=== PATIENT | female | born 1970 | race African-American/Black ===

== ENCOUNTER 2024-10-26 18:18 | Emergency (ER) | payer SELFPAY ==
[2024-10-26 18:47] VITALS: BP 139/70; PULSE 95; RESP 20; TEMP 36.5; O2SAT 100
--- NOTE | 2024-10-26 22:31 | PC.NURSE ---
22:12 Pt name was called out by wireless retail manager to be seen by provider. Pt did not respond to first call out. 22:30 Pt name was called again to go back to room. Pt did not respond to 2nd call out. Pt left without being seen.
== END 2024-10-26 22:12 | disposition left against medical advice (07) ==
DX: M54.50 Low back pain, unspecified (principal)
CPT/HCPCS: 99199

== ENCOUNTER 2024-10-27 08:55 | Emergency (ER) | payer OTHER, SELFPAY ==
--- NOTE | ~2024-10-27 | CT_ITS ---
EXAMINATION: CT lumbar spine wo con DATE: 10/27/2024 09:51 INDICATION: Left lower back pain radiating to the left lower extremity TECHNIQUE: Computed tomography (CT) of the lumbar spine was performed without intravenous contrast. A utomated exposure control and iterative reconstruction technique were employed. The dose-length produ ct was 328.37 mGy-cm. COMPARISON: None FINDINGS: 15 degrees lumbar levoscoliosis. Sagittal alignment is normal. Vertebral body heights are normal. Tan morl's node along the inferior endplate of L5. Mild disc height loss at L5-S1 and mild right-sided di sc height loss at L3-L4. Likely tubal ligation clips at the left and right sides of the uterus. 6.2 x 3.3 cm left adnexal cyst. The following disc levels are specifically discussed: T11-T12: The disc does not extend beyond the endplate margin. There is mild left and minimal right fa cet joint osteoarthritis. There is no neural foraminal stenosis. There is no central canal stenosis. T12-L1: Disc is mildly bulging. There is mild left and minimal right facet joint osteoarthritis. Ther e is no neural foraminal stenosis. There is mild central canal stenosis. L1-L2: Disc is bulging. There is mild bilateral facet joint osteoarthritis. There is no neural forami nal stenosis. There is mild central canal stenosis. L2-L3: Disc is minimally bulging. There is mild bilateral facet joint osteoarthritis. There is no demetria ral foraminal stenosis. There is no central canal stenosis. L3-L4: Disc is mildly bulging. There is mild right and minimal left facet joint osteoarthritis. There is no neural foraminal stenosis. There is mild central canal stenosis. L4-L5: Disc is minimally bulging. There is mild bilateral facet joint osteoarthritis. There is minima l right neural foraminal stenosis. There is no central canal stenosis. L5-S1: Disc is bulging. There is mild bilateral facet joint osteoarthritis. There is mild bilateral, left greater than right neural foraminal stenosis. There is mild central canal stenosis along with na rrowing of the lateral recesses, left greater than right. IMPRESSION: 1. Mild lumbar spondylosis. Reviewed, dictated and finalized at location A. [employer] IMPRESSION: 1. Mild lumbar spondylosis.
[2024-10-27 09:11] VITALS: BP 127/88; PULSE 82; RESP 18; TEMP 36.6; O2SAT 100
--- NOTE | 2024-10-27 09:45 | ED_ITS ---
HPI - Back Pain/Injury General Chief Complaint: Back Pain/Injury Stated Complaint: back pain Time Seen by Provider: 10/27/24 09:01 Source: patient Mode of arrival: ambulatory Limitations: no limitations History of Present Illness HPI Narrative: Patient is a 54-year-old female who presents the ED with report of back pain. Patient reports history of sciatica and September of this year after shoveling snow. States last she turned over in bed and felt a twinge in her back. Has had pain throughout her left lower back, radiating down her left medial lower leg down to her foot since then. Worse with movement. Has been taking Advil for the pain with some relief. Is able to ambulate. Denies numbness in lower extremities or saddle anesthesia. Does have some tingling intermittently in her left toes. Denies bowel or bladder incontinence. Denies weakness. Related Data Allergies Allergy/AdvReac Type Severity Reaction Status Date / Time Sulfa (Sulfonamide Allergy Mild Rash Verified 10/27/24 09:15 Antibiotics) Review of Systems Review of Systems: All systems reviewed & are unremarkable except as noted in HPI. All systems reviewed & are unremarkable except as noted in HPI and below Exam Narrative: GENERAL: Well appearing, thin, non-toxic, in no acute distress. HEAD: Normocephalic, atraumatic. RESPIRATORY: Airway patent, respirations nonlabored. Clear to auscultation bilaterally, no rales, rhonchi, wheezing. CARDIOVASCULAR: Regular rate and rhythm MUSCULOSKELETAL: Moves all extremities. No gross deformities. No significant midline lumbar spinal tenderness. Tenderness palpation over left SI region, reproducing pain. Sensation intact. No palpable bony deformities. Positive straight leg raise on left. Sensation is intact throughout left lower extremity pain. Peripheral pulses intact. SKIN: Warm, dry, normal color. NEURO: A&O X3. Speech clear. Cranial nerves II-XII grossly intact. Steady gait. No ataxic movements. PSYCHIATRIC: Appropriate mood and affect. Normal interaction. Course Vital Signs Vital signs: Vital Signs Temperature 97.9 F 10/27/24 09:11 Pulse Rate 82 10/27/24 09:11 Respiratory Rate 18 10/27/24 09:11 Blood Pressure 127/88 10/27/24 09:11 Pulse Oximetry 100 10/27/24 09:11 Oxygen Delivery Room Air 10/27/24 09:11 Temperature 97.9 F 10/27/24 09:11 Pulse Rate 82 10/27/24 09:11 Respiratory Rate 18 10/27/24 09:11 Blood Pressure 127/88 10/27/24 09:11 Pulse Oximetry 100 10/27/24 09:11 Oxygen Delivery Room Air 10/27/24 09:11 MDM - Back Pain/Injury MDM Narrative Medical decision making narrative: Patient?s pain is positional and localized to paraspinal muscles without signs of cord compression or cauda equina. Normal neurologic exams. No red flag symptoms. No fever noted and no significant risk factors for osteomyelitis or spinal epidural abscess. No symptoms or signs to suggest pain is referred from abdominal or source. CT lumbar spine obtained, showing mild lumbar spondylosis. Does show several bulging discs. No acute findings or fractures. Discussed imaging findings with patient. She is feeling improved with supportive therapy. Symptoms seem most consistent with musculoskeletal pain, lumbar strain, sciatica. Patient ambulates with a steady gait and is felt to be a reasonable candidate for continued outpatient management. Discharge home with muscle relaxers. Recommended close follow-up with PCP for further evaluation. Discussed strict return precautions. She agrees with plan. Discharged in stable condition. Medical Records Attestation: I reviewed the patient's medical records. Imaging Data Attestation: I personally reviewed and interpreted this imaging study as follows: Radiologist's impression: ITS Impressions Lumbar Spine CT 10/27/24 09:56 IMPRESSION: 1. Mild lumbar spondylosis. Discharge Plan Discharge Clinical Impression: Lumbar radiculopathy Strain of lumbar region Qualifiers: Encounter type: initial encounter Qualified Code(s): S39.012A - Strain of muscle, fascia and tendon of lower back, initial encounter Patient Disposition: Home, Self-Care Condition: Stable Instructions: Antibiotic Form, Sciatica (ED), Lumbar Radiculopathy (ED), Lower Back Exercises (ED) Additional Instructions: Continue Tylenol and Ibuprofen as needed for pain. You may use ice/heat, lidocaine patches to area of pain. Take muscle relaxers as needed and prescribed. Recommend taking these at night as they may cause sedation. Do not drive, operate heavy machinery, drink alcohol while on muscle relaxers as this may cause further sedation. Follow-up with your primary care doctor for further evaluation. Return to the ED if you experience worsening or severe pain, recurrent injury, numbness in groin or legs, going to the bathroom without meaning to, unable to keep down food or drink, or any other symptoms of concern. Patient Language: Divehi Prescriptions: New cyclobenzaprine 5 mg tablet 10 mg PO TID PRN (Reason: muscle spasm) Qty: 15 0RF lidocaine 5 % adhesive patch,medicated 1 patch topical DAILY Qty: 15 0RF Rx Instructions: leave on most painful area for up to 12 hrs Follow-up/Referrals: UNKNOWN,DOCTOR [Primary Care Provider] - Time of Disposition: 11:02
[2024-10-27] MEDS: ACETAMINOPHEN 500 MG TABLET 1000 MG PO (10:40)
[2024-10-27] MEDS: KETOROLAC (*BKC) 60 MG/2 ML VIAL IM (10:41)
[2024-10-27] MEDS: methylPREDNISolone SOD SUCC 125 MG VIAL IM (10:42)
[2024-10-27 11:17] VITALS: BP 120/73; PULSE 73; RESP 20; O2SAT 100
== END 2024-10-27 11:57 | disposition home or self-care (01) ==
PROVIDERS: Emergency Provider Physician Assistant
DX: S39.012A Strain of muscle, fascia and tendon of lower back, initial encounter (principal); M54.16 Radiculopathy, lumbar region; X50.3XXA Overexertion from repetitive movements, initial encounter
CPT/HCPCS: 72131; 96372; 99284; A9270; J1885; J2919

== ENCOUNTER 2025-04-08 09:49 | Outpatient (CLI) | payer OTHER, SELFPAY ==
--- NOTE | ~2025-04-08 | MM_ITS ---
EXAMINATION: MM screening steven BI w joseph HISTORY: Screening TECHNIQUE: Craniocaudal and mediolateral oblique 3-D tomosynthesis images were obtained and synthetic 2-D images were generated. CAD analysis was submitted and interpreted. COMPARISON: No prior mammogram is available for comparison at this institution. BREAST PARENCHYMAL COMPOSITION: FINDINGS: There is a mass in the subareolar location of the right breast. There are no suspicious mas ses, calcifications or architectural distortion in the left breast to suggest malignancy. IMPRESSION: 1. Partially obscured mass subareolar location of the right breast. 2. Additional mammographic views and possible breast ultrasound are recommended. BI-RADS Category 0: Incomplete: Needs additional imaging evaluation. Reviewed, dictated and finalized at location [facility]. IMPRESSION: 1. Partially obscured mass subareolar location of the right breast. 2. Additional mammographic views and possible breast ultrasound are recommended . BI-RADS Category 0: Incomplete: Needs additional imaging evaluation.
== END 2025-04-08 09:50 | disposition home or self-care (01) ==
LOC: ANHIMG 09:52
PROVIDERS: PCP Emergency Medicine; Visit Provider Emergency Medicine
DX: Z12.31 Encounter for screening mammogram for malignant neoplasm of breast (principal); R92.8 Other abnormal and inconclusive findings on diagnostic imaging of breast
CPT/HCPCS: 77063; 77067

== ENCOUNTER 2025-05-01 12:44 | Outpatient (CLI) | payer OTHER, SELFPAY ==
--- NOTE | ~2025-05-01 | MMUS_ITS ---
EXAMINATION: MM diagnostic steven RT w joseph, US breast RT limited HISTORY: Right subareolar breast mass TECHNIQUE: Additional 3-D tomosynthesis images of the right breast were performed and synthetic 2-D images were generated. CAD analysis was submitted and interpreted. High resolution limited right breast ultrasound was performed. COMPARISON: 04/08/2025 BREAST PARENCHYMAL COMPOSITION:Dense: The breasts are heterogeneously dense, which may obscure small masses. FINDINGS: MAMMOGRAPHIC FINDINGS: Spot compression views confirm a low-density circumscribed 1.7 cm mass in the right subareolar region. ULTRASOUND: At the right breast subareolar region, there is a 1.7 cm ovoid anechoic simple circumscribed cyst with posterior through transmission. IMPRESSION: 1.7 cm simple cyst in the right subareolar region. No evidence for malignancy. BI-RADS Category 2: Benign finding(s). Reviewed, dictated and finalized at [facility]. IMPRESSION: 1.7 cm simple cyst in the right subareolar region. No evidence for malignancy. BI-RADS Category 2: Benign finding(s).
== END 2025-05-01 12:45 | disposition home or self-care (01) ==
LOC: ANHFOHIMG 12:46
PROVIDERS: PCP Emergency Medicine; Visit Provider Emergency Medicine
DX: R92.8 Other abnormal and inconclusive findings on diagnostic imaging of breast (principal)
CPT/HCPCS: 76642; 77061; 77065; G0279